=== PATIENT | female | born 1995 | race Caucasian/White ===

== ENCOUNTER 2018-07-20 21:21 | Emergency (ER) | payer BC ==
[2018-07-20] MEDS ORDERED: IUD (21:40)
--- NOTE | 2018-07-20 21:46 | ER Report ---
History and Physical Time Seen By MD: 21:46 Hx. of Stated Complaint: PELVIC PAIN SINCE LAST FRIDAY OFF AND ON; CURRENTLY PATIENT HAS UPPER BACK PAIN THAT RADIATES TO HER CHEST; PATIENT STATES THAT SHE JUST DOES NOT FEEL LIGHT AND IT HURST TO BREATH HPI/ROS CHIEF COMPLAINT: Back pain with radiation to the chest, pelvic pain HISTORY OF PRESENT ILLNESS: Patient is a 23-year-old female here with complaints of right periscapular pain with radiation to the chest, associated shortness of breath, intermittent pelvic pain, intermittent lower abdominal pains since Friday. Patient reportedly had a urinalysis completed several days ago which was unremarkable, home test yesterday which was negative. Patient is co ncerned because she is having pain with breathing currently which is concerning to her. Patient is hemodynamically stable, afebrile at time of evaluation. REVIEW OF SYSTEMS: Constitutional: No fever, no chills. Eyes: No discharge. ENT: No sore throat. Cardiovascular: + right back/scapular pain with radiation to chest, no palpitations. Respiratory: No cough, + shortness of breath. Gastrointestinal: + lower abdominal pain, no vomiting. Genitourinary: No hematuria, + intermittent pelvic pain Musculoskeletal: + thoracic back pain. Skin: No rashes. Neurological: No headache. Home Meds Reported Medications [Iud] No Conflict Check 07/20/18 Hx Substance Use Disorder: No Hx Alcohol Use: Yes (OCC.) Constitutional Vital Sign - Last 24 Hours 07/20/18 21:29 Temp 98.3 Pulse 80 Resp 18 B/P (MAP) 130/87 Pulse Ox 99 O2 Delivery Room Air Physical Exam General Appearance: The patient is alert, has no immediate need for airway protection and no signs of toxicity. Uncomfortable appearing Eyes: Pupils equal and round no pallor or injection. ENT, Mouth: Mucous membranes are moist. Respiratory: There are no retractions, lungs are clear to auscultation. Cardiovascular: Regular rate and rhythm. Gastrointestinal: Abdomen is soft and non tender, no masses, bowel sounds normal. Neurological: No focal neuro deficits Skin: Warm and dry, no rashes. Musculoskeletal: Neck is supple non tender. Extremities are nontender, nonswollen and have full range of motion. DIFFERENTIAL DIAGNOSIS: After history and physical exam differential diagnosis was considered for chest pain including but not limited to myocardial ischemia, pericarditis pulmonary embolus, chest wall pain, pleural inflammation and pulmonary infectious causes., abdominal pain including but not limited to appendicitis, cholecystitis, gastritis and urinary tract infection, menstrual cramps Medical Decision Making Data Points Result Diagram: 07/20/18221307/20/182213 Laboratory Hematology Test 07/20/18 21:26 07/20/18 22:14 Urine Color Yellow Urine Clarity Clear Urine pH 6.0 pH (4.8-9.5) Urine Specific Crucible 1.010 Urine Protein Negative mg/dL (NEGATIVE) Urine Glucose (UA) Negative mg/dL (NEGATIVE) Urine Ketones Negative mg/dL (NEGATIVE) Urine Blood Negative (NEGATIVE) Urine Nitrite Negative (NEGATIVE) Urine Bilirubin Negative (NEGATIVE) Urine Urobilinogen Negative mg/dL (0.2-1.9) Urine Leukocyte Esterase Negative (NEGATIVE) Urine RBC 1 /HPF (0-2/HPF) Urine WBC None /HPF (0-5/HPF) Urine Squamous Epithelial Cells Many /LPF (</=FEW) Urine Bacteria Negative /HPF (NONE-FEW) Urine Mucus None /HPF (NONE-FEW) Red Blood Count 4.74 M/uL (4.17-5.56) Mean Corpuscular Volume 92.5 fL (80.0-96.0) Mean Corpuscular Hemoglobin 32.0 pg (26.0-33.0) Mean Corpuscular Hemoglobin Concent 34.6 g/dL (32.0-36.0) Red Cell Distribution Width 13.1 % (11.5-14.5) Mean Platelet Volume 7.7 fL (7.2-11.1) Neutrophils (%) (Auto) 48.8 % (39.4-72.5) Lymphocytes (%) (Auto) 41.3 % (17.6-49.6) Monocytes (%) (Auto) 7.0 % (4.1-12.4) Eosinophils (%) (Auto) 2.1 % (0.4-6.7) Basophils (%) (Auto) 0.8 % (0.3-1.4) Nucleated RBC Relative Count (auto) 0.0 /100WBC Neutrophils # (Auto) 3.6 K/uL (2.0-7.4) Lymphocytes # (Auto) 3.1 K/uL (1.3-3.6) Monocytes # (Auto) 0.5 K/uL (0.3-1.0) Eosinophils # (Auto) 0.2 K/uL (0.0-0.5) Basophils # (Auto) 0.1 K/uL (0.0-0.1) Nucleated RBC Absolute Count (auto) 0.00 K/uL D-Dimer Quantitative (PE/DVT) < 0.27 ug/ml (0-0.50) Sodium Level 139 mmol/L (137-145) Potassium Level 3.8 mmol/L (3.5-5.0) Chloride Level 104 mmol/L (98-107) Carbon Dioxide Level 26 mmol/L (22-31) Blood Urea Nitrogen 11 mg/dl (7-18) Creatinine 0.70 mg/dl (0.52-1.04) Glomerular Filtration Rate Calc > 60.0 Random Glucose 96 mg/dl (75-110) Calcium Level 9.0 mg/dl (8.4-10.2) Total Bilirubin 0.4 mg/dl (0.2-1.3) Aspartate Amino Transf (AST/SGOT) 28 U/L (0-35) Alanine Aminotransferase (ALT/SGPT) 32 U/L (0-56) Alkaline Phosphatase 73 U/L (0-126) Total Protein 6.9 g/dl (6.3-8.2) Albumin 4.0 g/dl (3.5-5.0) Lipase 56 U/L (23-300) Human Chorionic Gonadotropin, Qual Negative (NEGATIVE) Chemistry Test 07/20/18 21:26 07/20/18 22:14 Urine Color Yellow Urine Clarity Clear Urine pH 6.0 pH (4.8-9.5) Urine Specific Crucible 1.010 Urine Protein Negative mg/dL (NEGATIVE) Urine Glucose (UA) Negative mg/dL (NEGATIVE) Urine Ketones Negative mg/dL (NEGATIVE) Urine Blood Negative (NEGATIVE) Urine Nitrite Negative (NEGATIVE) Urine Bilirubin Negative (NEGATIVE) Urine Urobilinogen Negative mg/dL (0.2-1.9) Urine Leukocyte Esterase Negative (NEGATIVE) Urine RBC 1 /HPF (0-2/HPF) Urine WBC None /HPF (0-5/HPF) Urine Squamous Epithelial Cells Many /LPF (</=FEW) Urine Bacteria Negative /HPF (NONE-FEW) Urine Mucus None /HPF (NONE-FEW) White Blood Count 7.4 k/uL (4.5-11.0) Red Blood Count 4.74 M/uL (4.17-5.56) Hemoglobin 15.2 g/dL (12.0-16.0) Hematocrit 43.9 % (34.0-47.0) Mean Corpuscular Volume 92.5 fL (80.0-96.0) Mean Corpuscular Hemoglobin 32.0 pg (26.0-33.0) Mean Corpuscular Hemoglobin Concent 34.6 g/dL (32.0-36.0) Red Cell Distribution Width 13.1 % (11.5-14.5) Platelet Count 284 K/uL (150-450) Mean Platelet Volume 7.7 fL (7.2-11.1) Neutrophils (%) (Auto) 48.8 % (39.4-72.5) Lymphocytes (%) (Auto) 41.3 % (17.6-49.6) Monocytes (%) (Auto) 7.0 % (4.1-12.4) Eosinophils (%) (Auto) 2.1 % (0.4-6.7) Basophils (%) (Auto) 0.8 % (0.3-1.4) Nucleated RBC Relative Count (auto) 0.0 /100WBC Neutrophils # (Auto) 3.6 K/uL (2.0-7.4) Lymphocytes # (Auto) 3.1 K/uL (1.3-3.6) Monocytes # (Auto) 0.5 K/uL (0.3-1.0) Eosinophils # (Auto) 0.2 K/uL (0.0-0.5) Basophils # (Auto) 0.1 K/uL (0.0-0.1) Nucleated RBC Absolute Count (auto) 0.00 K/uL D-Dimer Quantitative (PE/DVT) < 0.27 ug/ml (0-0.50) Glomerular Filtration Rate Calc > 60.0 Calcium Level 9.0 mg/dl (8.4-10.2) Total Bilirubin 0.4 mg/dl (0.2-1.3) Aspartate Amino Transf (AST/SGOT) 28 U/L (0-35) Alanine Aminotransferase (ALT/SGPT) 32 U/L (0-56) Alkaline Phosphatase 73 U/L (0-126) Total Protein 6.9 g/dl (6.3-8.2) Albumin 4.0 g/dl (3.5-5.0) Lipase 56 U/L (23-300) Human Chorionic Gonadotropin, Qual Negative (NEGATIVE) Coagulation Test 07/20/18 22:14 D-Dimer Quantitative (PE/DVT) < 0.27 ug/ml Urinalysis Test 07/20/18 21:26 Urine Color Yellow Urine Clarity Clear Urine pH 6.0 pH (4.8-9.5) Urine Specific Crucible 1.010 Urine Protein Negative mg/dL (NEGATIVE) Urine Glucose (UA) Negative mg/dL (NEGATIVE) Urine Ketones Negative mg/dL (NEGATIVE) Urine Blood Negative (NEGATIVE) Urine Nitrite Negative (NEGATIVE) Urine Bilirubin Negative (NEGATIVE) Urine Urobilinogen Negative mg/dL (0.2-1.9) Urine Leukocyte Esterase Negative (NEGATIVE) Urine RBC 1 /HPF (0-2/HPF) Urine WBC None /HPF (0-5/HPF) Urine Squamous Epithelial Cells Many /LPF (</=FEW) Urine Bacteria Negative /HPF (NONE-FEW) Urine Mucus None /HPF (NONE-FEW) EKG/Imaging Imaging Location: [facility] Patient: Yara Miranda : 1995 Visit/Account:[id number] Date of [place] [facility]: 07/20/2018 2 VIEWS CHEST INDICATION: Chest pain. COMPARISON: None available FINDINGS: The lungs are clear. No effusion or pneumothorax is seen. Heart size and mediastinal contours are normal. IMPRESSION: 1. No radiographic evidence of active disease. ED Course/Re-evaluation ED Course Patient is a 23-year-old female here with complaints of lower abdominal pelvic pains intermittently for the past couple days, upper back pain with radiation to the chest since this evening with shortness breath. Chest x-ray was completed and showed no acute pulmonary infections or fluid on the lungs. Labs were checked including beta hCG, d-dimer due to patient report of shortness of breath and difficulty breathing. Beta-HCG was found to be negative, d-dimer was found to be negative. Urinalysis showed no acute signs of infection. Patient was advised to follow-up with her PCP for further evaluation and care. Patient was hemodynamically stable throughout course, afebrile. Decision to Disposition Date: Jul 20, 2018 Decision to Disposition Time: 23:00 Depart Departure Latest Vital Signs Vital Signs Date Time Temp Pulse Resp B/P (MAP) Pulse Ox O2 Delivery O2 Flow Rate FiO2 07/20/18 21:29 98.3 80 18 130/87 99 Room Air Impression: Primary Impression: Back pain Additional Impression: Pelvic pain Condition: Improved Disposition: HOME OR SELF-CARE Patient Instructions: Abdominal Pain (ED), Chest Pain (ED) Additional Instructions: Please follow-up with her family doctor in the next 3 days. Today her chest x- ray and labs were found to be normal. He may require further workup for evaluation of your chest/back pain, abdominal/pelvic pain. Please return if you develop fevers, chills, worsening pain, nausea, vomiting. Problem Qualifiers SCOT FOSS DO Jul 20, 2018 21:46
[2018-07-20 22:21] LABS: PLATELET COUNT, AUTOMATED 284 K/uL (150-450)
[2018-07-20 23:00] VITALS: BP 105/70
--- NOTE | 2018-07-20 23:07 | RADIOLOGY IMAGING REPORT ---
FACILITY: [facility] PATIENT NAME: Yara Miranda : 1995 MR: [id number] V: [id number] EXAM DATE: ORDERING PHYSICIAN: SC[employer]OSS TECHNOLOGIST: Location: [facility] [place] Patient: Yara Miranda : 1995 Visit/Account:[id number] Date of [place]: 07/20/2018 2 VIEWS CHEST INDICATION: Chest pain. COMPARISON: None available FINDINGS: The lungs are clear. No effusion or pneumothorax is seen. Heart size and mediastinal contours are nor mal. IMPRESSION: 1. No radiographic evidence of active disease. Report Dictated By: Cristóbal Candelaria at 07/20/2018 11:01 PM Report E-Signed By: Cristóbal Candelaria at 07/20/2018 11:02 PM WSN:[id number]
== END 2018-07-20 23:30 | disposition home or self-care (01) ==
LOC: ER 21:50
DX: M54.9 Dorsalgia, unspecified (principal); R10.2 Pelvic and perineal pain
CPT/HCPCS: 36415; 71046; 81001; 82040; 82247; 82310; 82374; 82435; 82565; 82947; 83690; 84075; 84132; 84155; 84295; 84450; 84460; 84520; 84703; 85025; 85379; 99283